=== PATIENT | female | born 1960 | race Caucasian/White ===

== ENCOUNTER 2019-07-08 05:19 | Observation (INO) ==
--- NOTE | 2019-07-02 11:49 | EKG Report ---
Test Performed on : 07/02/2019 11:37:44 AM Test Reason : PAT Blood Pressure : / mmHG Vent. Rate : 075 BPM Atrial Rate : 075 BPM P-R Int : 154 ms QRS Dur : 082 ms QT Int : 392 ms P-R-T Axes : 061 018 035 degrees QTc Int : 437 ms Normal sinus rhythm. Normal ECG When compared with ECG of 26-MAY-2018 16:17, No significant change was found Confirmed by Juna Thompson MD ([id number]) on 07/03/2019 4:34:54 PM
[2019-07-02 12:09] LABS: HEMATOCRIT 43.2 % (37.0-47.0); HEMOGLOBIN 14.6 g/dL (12.0-16.0); MCH 28.9 PG (27-31); MCHC 33.8 g/dL (33-37); MCV 85.5 FL (81-99); MPV 9.4 FL (7.4-10.4); RBC 5.05 XMIL (4.2-5.4); RDW 13.4 % (11.5-14.5)
[2019-07-02 12:43] LABS: AGAP 14; BUN 9 mg/dL (8-22); CALCIUM 9.2 mg/dL (8.8-10.2); CHLORIDE 101 mmol/L (98-107); COSMO 276; CREATININE 0.8 mg/dL (0.5-0.9); ESTIMATED GFR > 60; GLUCOSE 95 mg/dL (70-104); POTASSIUM 3.8 mmol/L (3.5-5.1); SODIUM 139 mmol/L (136-145); TCO2 24 mmol/L (25-35)
[2019-07-02 13:04] LABS: FREE T4 1.02 ng/dL (0.93-1.70); T4 7.03 ug/dL (4.60-12.00); TSH 2.18 uIUmL (0.27-4.20)
[2019-07-08] MEDS ORDERED: REGLAN ONE (06:07)
[2019-07-08] MEDS ORDERED: PEPCID ONE (06:07)
[2019-07-08] MEDS ORDERED: KEFZOL 1 GM/D5W 2 GM/100 ML IVPB ONE (06:07)
[2019-07-08] MEDS ORDERED: LR 1,000 ML ONE ×2 (06:07→09:05)
[2019-07-08] MEDS ORDERED: DIPRIVAN 1% ONE ×2 (06:38→16:49)
[2019-07-08] MEDS ORDERED: NORCURON ONE (06:39)
[2019-07-08] MEDS ORDERED: XYLOCAINE-MPF 2% ONE ×3 (06:39→17:32)
[2019-07-08] MEDS ORDERED: SODIUM CHLORIDE 0.9% 10 ML ONE ×2 (06:39→17:24)
[2019-07-08] MEDS ORDERED: VERSED ONE (06:41)
[2019-07-08] MEDS ORDERED: FENTANYL ONE ×2 (06:41→16:48)
[2019-07-08] MEDS ORDERED: SENSORCAINE 0.25%/EPI 1:200,000 ONE (06:59)
[2019-07-08] MEDS ORDERED: DECADRON ONE (07:08)
[2019-07-08] MEDS ORDERED: OFIRMEV 1000 MG/ISOTONIC SOLN 1,000 MG/100 ML BOTTLE ONE (07:08)
[2019-07-08] MEDS ORDERED: ZOFRAN ONE (07:08)
[2019-07-08] MEDS ORDERED: EPHEDRINE ONE (07:12)
[2019-07-08] MEDS ORDERED: BENADRYL ONE (07:27)
[2019-07-08] MEDS ORDERED: NEOSTIGMINE ONE (08:17)
[2019-07-08] MEDS: DILAUDID ONE ×2 (09:12→09:15)
[2019-07-08] MEDS ORDERED: MAXALT PO PRN (09:45)
[2019-07-08] MEDS ORDERED: ZOFRAN IV PRN (09:45)
[2019-07-08] MEDS ORDERED: VENTOLIN HFA INH PRN (09:45)
[2019-07-08] MEDS ORDERED: ULTRAM PO PRN (09:45)
[2019-07-08] MEDS ORDERED: LR 1,000 ML IV SCH (09:45)
[2019-07-08] MEDS ORDERED: EPINEPHRINE IM PRN (09:45)
[2019-07-08] MEDS: VITAMIN D PO SCH (13:41)
[2019-07-08] MEDS: VITAMIN B-12 SL SCH (13:41)
[2019-07-08] MEDS: OFIRMEV 1000 MG/ISOTONIC SOLN 1,000 MG/100 ML BOTTLE IV SCH ×2 (13:42→23:08)
--- NOTE | 2019-07-08 14:14 | OPERATIVE NOTE ---
PROCEDURE DATE: 07/08/2019 PROCEDURE: Total thyroidectomy. SURGEON: Salvador Marroquin MD. RESEARCH & ANALYTICS MANAGER: Dr. Shelton PREOPERATIVE DIAGNOSIS: Multinodular goiter with symptoms. POSTOPERATIVE DIAGNOSIS: Multinodular goiter with symptoms. INDICATIONS: A 59-year-old with increasing dysphagia and trouble swallowing. She has a multinodular gland and desires it removed. DESCRIPTION OF PROCEDURE: Satisfactory general endotracheal anesthesia was achieved. A roll was placed under her shoulders to gently extend her neck. The patient was placed in reverse Trendelenburg. The anterior neck was then prepped and draped in a sterile fashion. We marked the lowest skin line. We made cross gunderson espinal to keep the skin approximated appropriately. We then anesthetized the skin with 0.25 Marcaine with epinephrine. We then made a 10 cm transverse incision in that lowest skin line. We carried our incision through the platysma. We raised a subplatysmal plane with electrocautery cephalad to the thyroid prominence and inferior to the sternal notch. Gelpi retractors were placed on each side. We then opened the cervical fascia in the midline. We dissected on the right side first since it was the side with the largest nodule. We retracted the strap muscles laterally and exposed the right thyroid lobe. We then dissected on each side of the superior pole and clamped it with a right angle clamp and used a LigaSure to divide the superior pole vessels. We then left the clamp attached to the superior pole to roll the gland medially and anteriorly. We then identified the trachea inferiorly, and then gently rolled the gland up. We dissected close to the gland. The inferior parathyroid was close to the gland. We the inferior parathyroid away from the gland at the inferior pole. The superior parathyroid was also dissected away from the superior pole. We carefully dissected the areolar tissue right at the edge of the gland and continued to gently roll it. We identified the recurrent nerve and protected it from harm as we the tissue anterior to it. So, we were satisfied that the nerve was protected. Both parathyroids were salvaged, and we rolled the gland medially until we reached the trachea. We then turned our attention to the left side and did a similar dissection on the left, retracting the strap muscles, identifying the superior pole, isolating it, clamping it with the right angle and, using the LigaSure to divide it, we then rolled it medially. The superior parathyroid again was from the gland. The area of the inferior parathyroid was from the gland as well. We rolled the gland medially. We then identified the area of the recurrent nerve and identified it and stayed away from it. We carefully dissected, the areolar tissue from the lateral portion of the gland to the posterior portion the gland until we were able to roll the gland all the way to the isthmus, and then amputate the gland at the level of the isthmus. The gland was sent intact to Pathology for permanent section. Both sides were inspected and satisfactory hemostasis was achieved. We then placed a Adryan drain within the wound, bringing it out inferior and to the right of the midline, placing a portion of the drain in both of the thyroid lobe fossae. We secured the gland to the skin with 2-0 silk. We then closed the cervical fascia with interrupted 3-0 Polysorb. The platysma was closed with interrupted 3-0 Polysorb. The skin was closed with 4-0 Polysorb subcuticular stitch. Sterile dressing was applied. She tolerated it well, was sent to the recovery room in satisfactory condition. cc: MD Dr. Kevin Martínez
--- NOTE | 2019-07-08 16:42 | EKG Report ---
Test Performed on : 07/08/2019 4:25:18 PM Test Reason : CAT CALL Blood Pressure : / mmHG Vent. Rate : 098 BPM Atrial Rate : 098 BPM P-R Int : 154 ms QRS Dur : 076 ms QT Int : 358 ms P-R-T Axes : 057 014 032 degrees QTc Int : 457 ms Normal sinus rhythm. Cannot rule out Anterior infarct , age undetermined Abnormal ECG When compared with ECG of 02-JUL-2019 11:37, Nonspecific T wave abnormality now evident in Anterior leads Confirmed by Juan Thompson MD ([id number]) on 07/10/2019 12:15:59 PM
[2019-07-08] MEDS ORDERED: QUELICIN (DOSE) ONE (16:48)
[2019-07-08] MEDS ORDERED: ROBINUL ONE (16:48)
[2019-07-08] MEDS ORDERED: NEO-SYNEPHRINE ONE (17:24)
[2019-07-08] MEDS ORDERED: SENSORCAINE-MPF 0.5%/EPI 1:200,000 ONE (17:41)
[2019-07-08] MEDS ORDERED: ULTRAM ONE (18:24)
[2019-07-08] MEDS ORDERED: BLISTEX MEDICATED BERRY LIP BALM ONE (18:24)
[2019-07-08] MEDS ORDERED: PATIENT'S OWN MED PO SCH (21:00)
[2019-07-08] MEDS ORDERED: NORVASC PO SCH (21:00)
[2019-07-08] MEDS ORDERED: MAG-OX PO SCH (21:00)
[2019-07-08] MEDS ORDERED: EFFEXOR XR PO SCH (21:00)
--- NOTE | 2019-07-08 22:52 | OPERATIVE NOTE ---
PROCEDURE DATE: 07/08/2019 PROCEDURE: Exploration of neck with evacuation of hematoma. SURGEON: Salvador Marroquin MD. CAMP TENDER: Beau. PREOPERATIVE DIAGNOSIS: Postoperative hematoma of the neck. POSTOPERATIVE DIAGNOSIS: Postoperative hematoma of the neck. INDICATIONS: A 59-year-old who had undergone a total thyroidectomy this morning. She says that she sneezed rather aggressively this afternoon, and then developed swelling in her neck. Upon inspection, her neck was rather swollen, so it became necessary to bring her back to the operating room for evacuation of her hematoma. DESCRIPTION OF PROCEDURE: Satisfactory general endotracheal anesthesia was achieved. The anesthesiologist had no trouble intubating the patient. The stitch was cut from the drain and the drain was removed. We then prepped and draped the anterior neck. We incised the stitches of the skin using an 11 blade, and opened the skin incision to the extent that we had made it earlier. We then cut the platysma stitches. There was blood within the subcutaneous space. We evacuated it. We then cut the cervical fascial stitches as well and evacuated blood from both thyroid lobe fossae. There was a bleeding vessel in the inferior aspect of the neck wound that we clamped and then suture ligated with a 3-0 Polysorb suture ligature. There was some oozing along the edge of the trachea on both sides just medial to the nerves. This was cauterized, taking care to avoid injury to the nerves. We irrigated both low fossae with saline hemostasis and it appeared satisfactory, but I did choose to put Avitene in both thyroid lobe fossae in order to help secure hemostasis postoperatively. We then proceeded to close the cervical fascia in the midline with 3- 0 Polysorb. I then replaced the Adryan drain and placed it in the subcutaneous space. The drain was secured to the skin with 2-0 silk. We then closed the platysma with interrupted 3-0 Polysorb. The skin was then closed with 4-0 Polysorb subcuticular stitch. Telfa and a sterile OpSite was applied. A sterile gauze dressing was placed at the exit site of the drain. She tolerated it well and was sent to the recovery room in satisfactory condition. cc: Salvador Marroquin MD
[2019-07-09] MEDS: OFIRMEV 1000 MG/ISOTONIC SOLN 1,000 MG/100 ML BOTTLE IV SCH ×2 (04:15→09:26)
[2019-07-09] MEDS ORDERED: SYNTHROID PO SCH (07:00)
[2019-07-09] MEDS ORDERED: PNEUMOVAX 23 IM ONE (07:40)
[2019-07-09] MEDS: VITAMIN B-12 SL SCH (09:24)
[2019-07-09] MEDS: VITAMIN D PO SCH (09:25)
[2019-07-09 11:16] VITALS: BP 135/68
[2019-07-09] MEDS ORDERED: FLU VACCINE IM ONE (13:53)
--- NOTE | 2019-07-09 20:54 | GENERAL SURGERY PROGRESS NOTE ---
DATE: 07/09/2019 SUBJECTIVE: Ms. Kelly is doing well this morning. She feels good. She says she has no headache. Her calcium is 8.6, but her Chvostek's sign is negative. She has no perioral numbness. No swelling of her neck. There is minimal drainage. PLAN: The plan will be to remove her drain and discharge her today. We discussed taking calcium if she needs it for symptoms of hypocalcemia. She will return to see me in the office in a week. Wound care is discussed as well. cc: Salvador Mraroquin MD
== END 2019-07-09 14:09 | disposition home or self-care (01) ==
LOC: 4N 05:19 → OR 05:19
PROVIDERS: ADMIT Surgery; ATTEND Surgery
PROC: GE.THYR (2019-07-08 06:55)